=== PATIENT | female | born 1955 | race Two or more races ===

== ENCOUNTER 2018-07-18 08:16 | Day surgery (SDC) | payer OTHER ==
[~2018-07-18 08:16] MED LIST: CEFAZOLIN 1 GM INJ; CEFAZOLIN 2 GM/50 ML (PMX) 50 ML IVPB; LACTATED RINGER'S 1,000 ML IV*
[2018-07-18] MEDS ORDERED: FENTAnyl 50 MCG/ML VIAL (09:44)
[2018-07-18] MEDS ORDERED: ROCURONIUM 50 MG INJ (09:44)
[2018-07-18] MEDS ORDERED: NEOSTIGMINE 3 MG/3 ML SYRINGE (09:44)
[2018-07-18] MEDS ORDERED: PROPOFOL 20 ML (09:44)
[2018-07-18] MEDS ORDERED: LIDOCAINE 2% (SDV) 5 ML INJ (09:44)
[2018-07-18] MEDS ORDERED: MIDAZOLAM 1 MG/ML 2 ML INJ (09:44)
[2018-07-18] MEDS ORDERED: GLYCOPYRROLATE 0.4 MG INJ (09:44)
[2018-07-18] MEDS ORDERED: DEXAMETHASONE 4 MG/ML 5 ML INJ (09:45)
[2018-07-18] MEDS ORDERED: ONDANSETRON 4 MG INJ (09:45)
[2018-07-18] MEDS: BUPIVACAINE 0.5% (SDV) 30 ML INJ (10:44)
== END 2018-07-18 12:42 | disposition home or self-care (01) ==
LOC: SDS 08:16
DX: G56.02 Carpal tunnel syndrome, left upper limb (principal)
CPT/HCPCS: 64721